=== PATIENT | male | born 1985 | race Caucasian/White ===

== ENCOUNTER 2021-12-13 03:43 | Emergency (ER) | payer OTHER ==
[2021-12-13 04:14] LABS: BASOPHIL 0.4 % (0-2); EOSINOPHIL 3.1 % (0-5); HCT 45.7 % (42.0-52.0); HGB 15.7 g/dl (13.2-18.0); LYMPHOCYTE 25.7 % (15-48); MCHC 34.4 g/dL (32.0-36.0); MCV 84.3 fL (78.0-100.0); MONOCYTE 8.2 % (0-12); MPV 10.3 fL (6.0-9.5); NEUTROPHIL 62.4 % (41-80); NRBC 0; PLT 265 K/uL (150-400); RBC 5.42 M/uL (4.70-6.00); RDW 12.9 % (11.5-14.0); WBC 13.1 K/uL (4.0-10.5)
[2021-12-13 04:37] LABS: BILIRUBIN NEGATIVE (NEGATIVE); BLOOD 3+ Ery/uL (NEGATIVE); CLARITY CLEAR (CLEAR); COLOR YELLOW (YELLOW); GLUCOSE (U) NORMAL (NORMAL); LEUKOCYTES NEGATIVE Leu/uL (NEGATIVE); NITRITE NEGATIVE (NEGATIVE); PROTEIN TRACE (LOW) mg/dL (NEGATIVE); UROBILINOGEN 0.2 mg/dL (0.2-1.0)
[2021-12-13 04:38] LABS: ALBUMIN 4.2 g/dL (3.4-5.0); BILIRUBIN - TOTAL 0.4 mg/dL (0.2-1.0); BUN/CREAT RATIO (CALC) 17.2 RATIO; CREATININE 0.93 mg/dL (0.67-1.17); GLOBULIN (CALCULATION) 3.6 g/dL; POTASSIUM 3.8 mmol/L (3.5-5.1); TOTAL PROTEIN 7.8 g/dL (6.4-8.2)
[2021-12-13 04:45] LABS: BACTERIA TRACE; SQUAMOUS EPITHELIAL CELLS RARE; URINARY WBC RARE
[2021-12-13] MEDS ORDERED: NORCO 5-325 TA1 EACH PO (06:05)
[2021-12-13] MEDS ORDERED: FLOMAX 0.4 MG0.4 MG PO (06:05)
== END 2021-12-13 08:35 | disposition home or self-care (01) ==
LOC: FER 03:43
PROVIDERS: Emergency Medicine
DX: N13.0 Hydronephrosis with ureteropelvic junction obstruction (principal); F17.210 Nicotine dependence, cigarettes, uncomplicated
CPT/HCPCS: 36415; 80053; 81001; 85025; J1885; J2405; J7030